=== PATIENT | female | born 1970 | race Caucasian/White ===

== ENCOUNTER 2019-06-11 12:32 | Day surgery (SDC) | payer OTHER ==
[2019-06-11] MEDS ORDERED: PROPOFOL 40 ML (14:42)
== END 2019-06-11 15:54 | disposition home or self-care (01) ==
LOC: GIL 12:32
DX: Z12.11 Encounter for screening for malignant neoplasm of colon (principal); D12.5 Benign neoplasm of sigmoid colon; K29.50 Unspecified chronic gastritis without bleeding; K20.9 Esophagitis, unspecified; K29.80 Duodenitis without bleeding
CPT/HCPCS: 43239; 82962; 88305; 88312